=== PATIENT | male | born 1980 ===

== ENCOUNTER 2019-11-30 03:03 | Emergency (ER) | payer MEDICARE ==
--- NOTE | 2019-11-30 03:28 | Emergency Department Report ---
ED Psych HPI - General Chief Complaint: Psych Stated Complaint: SUICIDAL IDEATION Time Seen by Provider: 11/30/19 03:26 Source: patient, EMS Mode of arrival: Ambulatory Limitations: No Limitations - History of Present Illness Initial Comments: Patient is a 39-year-old male that presents emergency room with complaints of suicidal ideations. Patient states that he wants to hurt himself. Patient states he is plan is to take all of his medications. Patient states that he is feeling little better after leaving his long term. Patient states that he has been having the thoughts for about a week. Patient states the thoughts are becoming more frequently. Patient states he has been sober and smoked crack today which made the feelings a lot stronger. Patient states he is depressed. Patient states he is anxious. Patient denies homicidal ideation. Patient denies hallucinations. Patient denies recent travel. Patient denies recent international travel. Patient denies exposure to the novel coronavirus. Patient denies sick contacts. Patient denies fever and chills. Patient denies cough. Patient denies diarrhea. Patient denies coming in contact with anybody with symptoms of the novel coronavirus. MD Complaint: suicidal ideation, feels depressed -: Sudden Associated Psychiatric Symptoms: depression, suicidal ideation History of same: Yes Quality: constant Improves With: none Worsens With: none Context: recent drug abuse Associated Symptoms: denies other symptoms. denies: confusion, headache, shortness of breath, nausea, vomiting, syncope, insomnia Treatments Prior to Arrival: placed on mental he If Self Harm: admits thoughts of, has plan - Related Data Home Medications Medication Instructions Recorded Confirmed Last Taken AtorvaSTATin [Lipitor] 80 mg PO QHS 11/30/19 11/30/19 Unknown Insulin Aspart (Nf) [Novolog] 6 unit SQ AC 11/30/19 11/30/19 Unknown OLANZapine [Zyprexa] 15 mg PO QHS 11/30/19 11/30/19 Unknown Sitagliptin Phosphate [Januvia] 100 mg PO QDAY 11/30/19 11/30/19 Unknown lisinopriL [Zestril TAB] 10 mg PO QDAY 11/30/19 11/30/19 Unknown metFORMIN [Glucophage] 500 mg PO BID 11/30/19 11/30/19 Unknown Allergies Allergy/AdvReac Type Severity Reaction Status Date / Time No Known Allergies Allergy Unverified 11/30/19 03:09 ED Review of Systems ROS: Stated complaint: SUICIDAL IDEATION Other details as noted in HPI Constitutional: denies: chills, fever Eyes: denies: eye pain, eye discharge, vision change ENT: denies: ear pain, throat pain Respiratory: denies: cough, shortness of breath, wheezing Cardiovascular: denies: chest pain, palpitations Endocrine: no symptoms reported Gastrointestinal: denies: abdominal pain, nausea, diarrhea Genitourinary: denies: urgency, dysuria Musculoskeletal: denies: back pain, joint swelling, arthralgia Skin: denies: rash, lesions Neurological: denies: headache, weakness, paresthesias Psychiatric: denies: anxiety, depression Hematological/Lymphatic: denies: easy bleeding, easy bruising ED Past Medical Hx - Past Medical History Previous Medical History?: Yes Hx Hypertension: Yes Hx Diabetes: Yes - Surgical History Past Surgical History?: No - Family History Family history: no significant - Social History Smoking Status: Current Every Day Smoker Substance Use Type: Cocaine - Medications Home Medications: Home Medications Medication Instructions Recorded Confirmed Last Taken Type AtorvaSTATin [Lipitor] 80 mg PO QHS 11/30/19 11/30/19 Unknown History Insulin Aspart (Nf) [Novolog] 6 unit SQ AC 11/30/19 11/30/19 Unknown History OLANZapine [Zyprexa] 15 mg PO QHS 11/30/19 11/30/19 Unknown History Sitagliptin Phosphate [Januvia] 100 mg PO QDAY 11/30/19 11/30/19 Unknown History lisinopriL [Zestril TAB] 10 mg PO QDAY 11/30/19 11/30/19 Unknown History metFORMIN [Glucophage] 500 mg PO BID 11/30/19 11/30/19 Unknown History ED Physical Exam - General Limitations: No Limitations General appearance: alert, in no apparent distress - Head Head exam: Present: atraumatic, normocephalic - Eye Eye exam: Present: normal appearance - ENT ENT exam: Present: mucous membranes moist - Neck Neck exam: Present: normal inspection - Respiratory Respiratory exam: Present: normal lung sounds bilaterally. Absent: respiratory distress - Cardiovascular Cardiovascular Exam: Present: regular rate, normal rhythm. Absent: systolic murmur, diastolic murmur, rubs, gallop - GI/Abdominal GI/Abdominal exam: Present: soft, normal bowel sounds - Rectal Rectal exam: Present: deferred - Extremities Exam Extremities exam: Present: normal inspection - Back Exam Back exam: Present: normal inspection - Neurological Exam Neurological exam: Present: alert, oriented X3 - Psychiatric Psychiatric exam: Present: depressed, flat affect - Skin Skin exam: Present: warm, dry, intact, normal color. Absent: rash ED Course Vital Signs 11/30/19 11/30/19 11/30/19 03:08 03:41 07:41 Temperature 98.1 F 97.8 F Pulse Rate 91 H 79 Respiratory 20 18 20 Rate Blood Pressure 169/107 Blood Pressure 145/98 [Right] O2 Sat by Pulse 95 95 93 Oximetry - Reevaluation(s) Reevaluation #1: Patient placed on a ER hold after initial evaluation. 11/30/19 03:28 Reevaluation #2: Patient is medically cleared. Patient will remain in the ER as an ER hold until final disposition done by ER mental health and psychiatric team. I discussed all results and clinical findings with patient. I discussed plan of care with patient. Patient agrees with plan of care. 11/30/19 05:50 ED Medical Decision Making - Lab Data Result diagrams: 11/30/19 03:35 11/30/19 03:35 - Medical Decision Making Patient is a 39-year-old male who presents emergency room with depression and suicidal ideations. Patient also had a relapse of cocaine use. Patient had labs done which were unremarkable except for UDS positive for cocaine. Patient placed on a ER hold. Patient is medically clear. Patient's final psychiatric disposition will come from our psych and mental health team. - Differential Diagnosis Suicidal ideation, depression, cocaine abuse. Critical care attestation.: If time is entered above; I have spent that time in minutes in the direct care of this critically ill patient, excluding procedure time. ED Disposition Clinical Impression: Suicidal ideation, Cocaine abuse Depression Qualifiers: Depression Type: unspecified Qualified Code(s): F32.9 - Major depressive disorder, single episode, unspecified Disposition: [id number] PSY HOSP/PSY UNIT Is pt being admited?: No Does the pt Need Aspirin: No Condition: Stable Instructions: Depression (ED) Referrals: PRIMARY CARE, [Primary Care Provider] - 2-3 Days Time of Disposition: 05:50
[2019-11-30 03:40] LABS: Bilirubin,Urine NEG (Negative); Blood,Urine NEG (Negative); Color,Urine Straw (Yellow); Protein,Urine <15 mg/dL mg/dL (Negative); Urobilinogen,Urine < 2.0 mg/dL (<2.0); WBC,Urine < 1.0 /HPF (0.0-6.0)
[2019-11-30 03:46] LABS: Amphetamine Screen,Urine PRESUMPTIVE NEGATIVE; Benzodiazepines Screen,Urine PRESUMPTIVE NEGATIVE; Cannabinoid Screen,Urine PRESUMPTIVE NEGATIVE; Methadone Screen,Urine PRESUMPTIVE NEGATIVE; Opiate Screen,Urine PRESUMPTIVE NEGATIVE
[2019-11-30 04:13] LABS: Cocaine Screen,Urine PRESUMPTIVE POSITIVE
[2019-11-30 04:45] LABS: Basophils # (Auto) 0.1 K/mm3 (0.0-0.1); Basophils % (Auto) 0.7 % (0.0-1.8); Eosinophils # (Auto) 0.1 K/mm3 (0.0-0.4); Eosinophils % (Auto) 0.8 % (0.0-4.3); Lymphocytes # (Auto) 2.5 K/mm3 (1.2-5.4); Lymphocytes % (Auto) 23.3 % (13.4-35.0); Mean Corpuscular HGB Conc 36 % (32-34); Mean Corpuscular Volume 87 fl (84-94); Monocytes # (Auto) 0.6 K/mm3 (0.0-0.8); Monocytes % (Auto) 5.8 % (0.0-7.3); Platelet Count 274 K/mm3 (140-440); Red Blood Count 5.28 M/mm3 (3.65-5.03); Red Cell Distribution Width 14.2 % (13.2-15.2)
[2019-11-30 04:47] LABS: Hematocrit 45.9 % (35.5-45.6); Hemoglobin 16.3 gm/dl (11.8-15.2)
[2019-11-30 05:24] LABS: BUN/Creatinine Ratio 16; Blood Urea Nitrogen 13 mg/dL (9-20); Hemolysis Index 32
[2019-11-30 07:42] VITALS: BP 145/98
== END 2019-11-30 13:50 ==
LOC: ED 03:03 → EEVIPCON 03:03 → ED 13:50
DX: F32.9 Major depressive disorder, single episode, unspecified (principal); F14.10 Cocaine abuse, uncomplicated; R45.851 Suicidal ideations; I10 Essential (primary) hypertension; E11.9 Type 2 diabetes mellitus without complications; F17.200 Nicotine dependence, unspecified, uncomplicated; Z79.899 Other long term (current) drug therapy
CPT/HCPCS: 36415; 80048; 80307; 80320; 81001; 85025; G0480